=== PATIENT | male | born 1975 | race Caucasian/White ===

== ENCOUNTER → 2022-02-20 09:19 | Outpatient (BNVA) | payer OTHER, SELFPAY | PROVIDERS: Visit Provider Physician Assistant Medical | DX: S46.012A Strain of muscle(s) and tendon(s) of the rotator cuff of left shoulder, initial encounter (principal); X50.0XXA Overexertion from strenuous movement or load, initial encounter | CPT/HCPCS: 99203 ==

== ENCOUNTER → 2022-02-23 09:03 | Outpatient (BNVA) | payer OTHER, SELFPAY | PROVIDERS: Visit Provider Physician Assistant Medical | DX: M75.42 Impingement syndrome of left shoulder (principal) | CPT/HCPCS: 99213 ==

== ENCOUNTER 2022-04-08 09:00 | Outpatient (RCR) | payer OTHER, SELFPAY ==
--- NOTE | 2022-02-24 12:08 | MHC.PT.EP ---
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 Pt expressed onset of sharp L sided neck/shoulder pain following injury, applied ice given from the paramedics who were working alongside him at time of the scene he was working. He hopped into the ambulance to go to the ER with patient they were working following injury. In the ER at [facility] patient underwent xrays (-) acute fracture. Pt is in the process of being referred to orthopedics and has a follow up with [facility] next Wednesday03/02/22. Pt date's of referral from [facility] was made on 02/23/22. Pt exhibits decreased cervical AROM, impaired ROM and strength of the L shoulder (+) impingement special testing, and decreased tolerance for daily tasks such as lying on L side, driving/turning the wheel when driving, performing active elevation/overhead lifting. He has also expressed intermittent parathesias which have traveled down the arm (no specific patterning), exaggerated at most when attempting to move/lift arm overhead. Pt would benefit from attending skilled PT services at a frequency of 2x/week x 4 weeks to address impairments, implement HEP, and restore functional mobility tolerance to resume PLOF. Pt has been OOW since this injury. Post evaluation, he was trialed with IASTM to address soft tissue restrictions of the L UT with noted erythema response, received education for how to perform low load, gentle, stretches for L UT, L levator, and L scalene musculature. He received ROCKTAPE I strip for shoulder stability taping combined with additional strapping for levator scap support. He was educated re: application/removal/indications for use, goals of therapy. He was advised to bring in his TENS unit from home so he could be best educated how to apply properly, encouraged to apply ice vs heat to the L shoulder, use heat for the L upper trap musculature. He was issued a written HEP program for home to include: pendulums, iso scap retraction, AAROM table slides sliding in sitting for flexion, L levator, L upper trap, and L scalene stretches. Pt exhibits excellent rehab prognosis, signs and sx most consistent with a L cervical/upper trap strain with combo of L RTC impingement. Frequency and Duration: The patient will be seen 2x/week x 4 weeks Short Term Goals: 1. Pt will be initiated in HEP program to address L shoulder ROM deficits. 2. Pt will improve SPADI score by 25%. 3. Demonstrate L shoulder flexion to 130 degrees. 4. Pt demonstrate right cervical rotation to 70 degrees. [employer] Goals: 1. I HEP. 2. RTW full duty with good understanding joint protection measures. 3. Strength L shoulder 5/5 all planes. 4. Resume overhead elevation with sx <3/10 L shoulder. 5. Pt will demonstrate ability to sleep in L SL position. Treatment Plan: Modalities to reduce pain, spasms and effusion. Manual therapy to restore motion and function. Therapeutic exercise to improve strength and flexibility. Neuromuscular re-education for posture and balance. Therapeutic activities to return to functional activities of daily living. Electronically signed by: Jennifer Huff, PT, DPT Please sign and return to therapist. Thank you for your referral.
== END 2022-08-06 14:46 | disposition home or self-care (01) ==
LOC: HO.PTWFD 09:00
PROVIDERS: PCP Internal Medicine; Visit Provider Physician Assistant Medical
DX: M25.811 Other specified joint disorders, right shoulder (principal)
CPT/HCPCS: 97012; 97110; 97140; 97161; 97164; 97535